=== PATIENT | male | born 1980 | race Caucasian/White ===

== ENCOUNTER 2017-08-22 15:08 | Emergency (ER) | payer MEDICAID ==
--- NOTE | 2017-08-22 15:53 | EDM.PDOC ---
ED HPI GENERAL MEDICAL PROBLEM - General Chief Complaint: Respiratory Problem Stated Complaint: COUGHING UP BLOOD Time Seen by Provider: 08/22/17 15:39 Source of Information: Reports: Patient History Limitations: Reports: No Limitations - History of Present Illness INITIAL COMMENTS - FREE TEXT/NARRATIVE: 36 year old male presents for evaluation andtreatment of a cough. Patient reports he's been coughing for several weeks. He presented today to the ER as he became concerned today when he started coughing up blood. He reports that he did have a bloody nose last week. He reports "strings of blood " present in his cough today. States it was not significant amount. He reports he is now developed associated symptoms of fatigue and a decreased appetite. He states he has "felt warm " last night but did not take his temperature. Denies any ear pain, sore throat, nausea, vomiting, abdominal pain or diarrhea. No influenza vaccine this season. - Related Data Allergies Allergy/AdvReac Type Severity Reaction Status Date / Time morphine Allergy Hives Verified 08/22/17 15:18 Home Meds: Home Meds . [No Known Home Meds] 08/22/17 [History] Past Medical History - Past Health History Medical/Surgical History: Denies Medical/Surgical History Social & Family History - Tobacco Use Smoking Status *Q: Current Every Day Smoker Years of Tobacco use: 20 Packs/Tins Daily: 0.9 - Recreational Drug Use Recreational Drug Use: No ED ROS GENERAL - Review of Systems Review Of Systems: See Below Constitutional: Reports: Fatigue, Decreased Appetite. Denies: Fever (felt warm but did not take temp) HEENT: Reports: Nosebleed (last week). Denies: Ear Pain, Throat Pain Respiratory: Reports: Cough, Hemoptysis GI/Abdominal: Denies: Abdominal Pain, Diarrhea, Nausea, Vomiting ED EXAM, GENERAL - Physical Exam Exam: See Below Exam Limited By: No Limitations General Appearance: Alert, WD/WN, No Apparent Distress Eye Exam: Bilateral Eye: Normal Inspection Ears: Normal External Exam, Normal Canal, Hearing Grossly Normal, Normal TMs Nose: Normal Inspection, No Blood Throat/Mouth: Normal Inspection, Normal Lips, Normal Oropharynx, Normal Voice, No Airway Compromise Neck: Normal Inspection Respiratory/Chest: No Respiratory Distress, Lungs Clear, Normal Breath Sounds Cardiovascular: Normal Peripheral Pulses, Regular Rate, Rhythm, No Murmur GI/Abdominal: Soft, Non-Tender Neurological: Alert, Oriented, Normal Cognition Psychiatric: Normal Affect, Normal Mood Skin Exam: Warm, Dry, Normal Color Course - Vital Signs Last Recorded V/S: Last Vital Signs Temp 36.4 C 08/22/17 15:14 Pulse 66 08/22/17 15:14 Resp 16 08/22/17 15:14 BP 159/109 H 08/22/17 15:14 Pulse Ox 100 08/22/17 15:14 - Radiology Interpretation Free Text/Narrative:: chest xray shows no acute intrathoracic process - Re-Assessments/Exams Free Text/Narrative Re-Assessment/Exam: 08/22/17 17:18 Influenza returned negative. I reviewed the chest x-ray and labs the patient. Pelvis is likely a viral upper respiratory infection. The hemoptysis is likely from his recent nosebleed and/or inflammation from the virus. We will discharge him home. Discharge instructions as documented. Departure - Departure Time of Disposition: 17:23 Disposition: Home, Self-Care 01 Condition: Fair Clinical Impression: Viral upper respiratory infection - Discharge Information Instructions: Upper Respiratory Infection, Adult, [id number] Referrals: PCP,None [Primary Care Provider] - Jean Pierre Paniagua [Physician] - Forms: ED Department Discharge, ED Return to Work/School Form Additional Instructions: Rest. Note given for work. [id number] Tylenol and Motrin as needed for headaches and fever relief. make sure you're drinking plenty of fluids. Follow-up with family medicine if your symptoms have not improved much which was within [address] Colindres at the [facility]. Call schedule with him. Please return to the ER if your symptoms change or worsen.
--- NOTE | 2017-08-23 07:54 | CR ---
Chest: Two views of the chest were obtained. Comparison: No prior chest x-ray. Heart size and mediastinum are normal. Lungs are clear. Bony structures are unremarkable. Impression: 1. Nothing acute is identified on two-view chest x-ray. Diagnostic code #1
== END 2017-08-22 17:36 | disposition home or self-care (01) ==
LOC: JD.ED 15:08
DX: J06.9 Acute upper respiratory infection, unspecified (principal); F17.210 Nicotine dependence, cigarettes, uncomplicated; Z88.5 Allergy status to narcotic agent
CPT/HCPCS: 71046; 71046-26; 87804; 99283; 99284